=== PATIENT | female | born 1945 | race Caucasian/White ===

== ENCOUNTER 2021-05-04 13:49 | Inpatient (IN) ==
[2021-05-04] MEDS ORDERED: ACETAMINOPHEN 325 MG TABLET PO PRN (15:27)
[2021-05-04 15:44] LABS: Basophils % 0.3 % (0.0-0.8); Eosinophils # 0.1 10*3/uL (0.0-0.87); Eosinophils % 1.2 % (0.00-10.9); Hematocrit 36.8 VOL% (35.7-47.0); Hemoglobin 11.3 GM/DL (12.0-16.0); Immature Granulocytes % 0.7 %; Immature Granulocytes Absolute 0.07 #; Mean Corpuscular HGB Conc 30.7 GM/DL (32-36); Mean Corpuscular Volume 96.1 FL (87-102); Mean Platelet Volume 9.8 FL (9.6-12.0); Monocytes % 7.3 % (1.7-12.7); Neutrophils % 81.5 % (38.7-73.9); Platelet Count 216 T/CUMM (130-400); Red Blood Count 3.83 MC/CUMM (3.8-5.5); Red Cell Distribution Width 15.3 % (9.3-17.3); White Blood Count 10.7 T/CUMM (4-12)
[2021-05-04 15:58] LABS: Albumin 2.3 G/DL (3.4-5.0); Bilirubin,Total 0.5 MG/DL (0.20-1.00); Calcium 8.2 MG/DL (8.5-10.1); Osmolality,Calculated 277.7 MOS/KG (273-304); Potassium 3.8 MMOL/L (3.5-5.1); Total Protein 6.4 G/DL (6.4-8.2)
[2021-05-04] MEDS: PIPERACILLIN/TAZOBACTAM 3,375 MG in SODIUM CHLORIDE 0.9% 100 ML IV SCH (16:00)
[2021-05-04] MEDS: DEXTROSE 5% LACTATED RINGERS 1,000 ML IV SCH (16:00)
[2021-05-04] MEDS: ONDANSETRON 4 MG/2 ML VIAL IV PRN (16:05)
[2021-05-04] MEDS: MORPHINE 2 MG/1 ML SYRINGE IV PRN (16:05)
[2021-05-05] MEDS: PIPERACILLIN/TAZOBACTAM 3,375 MG in SODIUM CHLORIDE 0.9% 100 ML IV SCH ×3 (00:40→15:22)
[2021-05-05] MEDS: DEXTROSE 5% LACTATED RINGERS 1,000 ML IV SCH ×3 (03:44→16:47)
[2021-05-05] MEDS: PANTOPRAZOLE 40 MG TABLET PO SCH (09:58)
[2021-05-05] MEDS: MORPHINE 2 MG/1 ML SYRINGE IV PRN (09:58)
[2021-05-05] MEDS: ONDANSETRON 4 MG/2 ML VIAL IV PRN (15:21)
[2021-05-06] MEDS: PIPERACILLIN/TAZOBACTAM 3,375 MG in SODIUM CHLORIDE 0.9% 100 ML IV SCH ×3 (00:31→15:21)
[2021-05-06] MEDS: DEXTROSE 5% LACTATED RINGERS 1,000 ML IV SCH ×3 (00:33→16:44)
[2021-05-06] MEDS: PANTOPRAZOLE 40 MG TABLET PO SCH (09:11)
[2021-05-06] MEDS: ONDANSETRON 4 MG/2 ML VIAL IV PRN (15:24)
[2021-05-07] MEDS: PIPERACILLIN/TAZOBACTAM 3,375 MG in SODIUM CHLORIDE 0.9% 100 ML IV SCH ×2 (00:32→10:24)
[2021-05-07] MEDS: DEXTROSE 5% LACTATED RINGERS 1,000 ML IV SCH ×2 (00:33→10:25)
[2021-05-07 07:32] LABS: Basophils % 0.3 % (0.0-0.8); Eosinophils # 0.2 10*3/uL (0.0-0.87); Eosinophils % 2.2 % (0.00-10.9); Hematocrit 33.3 VOL% (35.7-47.0); Hemoglobin 10.5 GM/DL (12.0-16.0); Immature Granulocytes % 0.5 %; Immature Granulocytes Absolute 0.04 #; Lymphocytes # 0.8 10*3/uL (1.4-4.0); Lymphocytes % 10.6 % (21.3-54.2); Mean Corpuscular HGB Conc 31.5 GM/DL (32-36); Mean Corpuscular Volume 94.1 FL (87-102); Mean Platelet Volume 8.7 FL (9.6-12.0); Neutrophils % 79.4 % (38.7-73.9); Platelet Count 236 T/CUMM (130-400); Red Blood Count 3.54 MC/CUMM (3.8-5.5); Red Cell Distribution Width 14.6 % (9.3-17.3); White Blood Count 7.4 T/CUMM (4-12)
[2021-05-07 07:53] LABS: Eosinophils 1 % (0-10); Hypochromasia 1+; Lymphocytes 15 % (20-55); Microcytosis 1+; Platelet Estimate Adequate; Segmented Neutrophils 79 % (50-85); Total Cells Counted 100
[2021-05-07] MEDS: PANTOPRAZOLE 40 MG TABLET PO SCH (10:31)
[2021-05-07] MEDS ORDERED: AMOXICILLIN/CLAV 500 MG TABLET PO SCH (11:00)
[2021-05-07 11:52] VITALS: BP 119/50
[2021-05-07] MEDS ORDERED: ALBUTEROL 2.5 MG/3 ML NEB RESP TX PRN (12:19)
[2021-05-07] MEDS ORDERED: HYDROXYCHLOROQUINE 200 MG TABLET PO SCH (21:00)
[2021-05-07] MEDS ORDERED: DORZOLAMIDE/TIMOLOL OPH SOLN 10 ML BOTTLE BOTH EYES SCH (21:00)
[2021-05-07] MEDS ORDERED: BIMATOPROST 0.01% OPH SOLN 2.5 ML BOTTLE BOTH EYES SCH (21:00)
[2021-05-07] MEDS ORDERED: BRIMONIDINE 0.1% OPH SOLN 5 ML BOTTLE RIGHT EYE SCH (21:00)
[2021-05-08] MEDS ORDERED: LEVOTHYROXINE 25 MCG TABLET PO SCH (06:30)
[2021-05-08] MEDS ORDERED: RALOXIFENE 60 MG TABLET PO SCH (09:00)
== END 2021-05-07 14:47 | disposition home health service (06) | DRG 392 ==
LOC: EDBD → EDUNIT# → N.ED 13:49 → N.EDINP 16:31 → N.5E 16:48
PROVIDERS: ADMIT Surgery; ATTEND Surgery